=== PATIENT | male | born 1995 | race Caucasian/White ===

== ENCOUNTER 2020-02-04 14:17 | Emergency (ER) | payer SELFPAY ==
[2020-02-04 14:39] VITALS: BP 133/73; PULSE 84; RESP 16; TEMP 37.1; O2SAT 98; BMI 25.8
--- NOTE | 2020-02-04 14:45 | XR_ITS ---
EXAMINATION: XR fifth finger, LEFT CLINICAL INFORMATION: Trauma COMPARISON: None TECHNIQUE: 4 views of the left fifth finger. FINDINGS: There is a soft tissue avulsion injury involving the dorsal medial aspect of the left fifth distal phalanx. There is fracture of the tuft with distraction of the major fracture fragments by approximately 3 mm. There is some volar displacement and angulation of the distal fracture fragment. No radiopaque foreign body is appreciated. XR/XR finger LT min 2V IMPRESSION: Avulsion injury about the soft tissues with displaced fracture of the distal tuft of the fifth distal phalanx.
--- NOTE | 2020-02-04 15:26 | ED_ITS ---
HPI - Wound/Laceration General Chief Complaint: Wound/Laceration Stated Complaint: FINGER INJ Time Seen by Provider: 02/04/20 14:45 Source: patient Mode of arrival: ambulatory Limitations: language barrier History of Present Illness HPI narrative: 24 y/o male presenting with left 5th finger pain after he injured it while throwing metal into a dumpster. The metal got stuck on his finger and caused a deep laceration to the tip of the finger, deep under the nail bed. Pain is throbbing in nature. He has full function of his finger and denies numbness. No other injuries. Onset (ago): hour(s) (4) Extremity Location: left: hand (5th digit ) Place: home Patient tetanus UTD: No Context: accidental Associated symptoms: pain Treatments prior to arrival: bandage Related Data Previous Rx's Medication Instructions Recorded cephalexin [Keflex] 500 mg PO QID 10 Days #40 cap 02/04/20 hydrocodone-acetaminophen [Lithonia] 1 tab PO Q6H PRN #10 tab 02/04/20 ibuprofen 600 mg PO Q8H PRN #20 tab 02/04/20 Allergies Allergy/AdvReac Type Severity Reaction Status Date / Time No Known Allergies Allergy Unverified 02/04/20 14:45 Review of Systems Review of Systems: Constitutional: No Fever, No Chills Cardiovascular: No Chest Pain, No SOB Respiratory: No Cough, No Sputum Gastrointestinal: No Nausea, No Vomiting Musculoskeletal: + joint pain, No Myalgias Skin: + Skin Lesions, No rash Neuro: No Weakness, No Numbness Heme/Lymph: + Bruising PMFSH Past Medical History Attestation statement: The following information was validated with the patient. Social History Social History Advance Directives: No Advance Directives Information Provided: No Physical Exam Vital Signs: Vital Signs: Last Vital Signs Temp 98.8 F 02/04/20 14:39 Pulse 84 02/04/20 14:39 Resp 16 02/04/20 14:39 BP 133/73 02/04/20 14:39 Pulse Ox 98 02/04/20 14:39 Body Mass Index 25.8 Appearance: Alert. Oriented X3. No acute distress. HEENT: normal inspection CVS: Normal heart rate and rhythm. Pulses normal. Respiratory: No respiratory distress. Skin: Skin warm and dry. Normal skin color. Normal skin turgor. No rashes. Extremities: left 5th digit with deep laceration to the dorsal aspect just below nail bed, tendon function is intact, wound is irregular, subungual hematoma present, unable to assess cap refill. Neuro: Oriented X 3. No motor deficit. No sensory deficit. Course Course Course Narrative: 24 y/o male with finger trauma. Does not appear to have tendon involvement. XR showed avulsion injury with displaced fracture of the distal tuft of the 5th distal phalanx. Images of XR and wound were sent to [facility] from [facility]o - she reviewed the case with Hand Surgeon. Recommended extensive wound irrigation, loose wound margin approximation and antibiotics. Ortho will see early next week. Procedures Laceration Laceration 1: Site: hand Side (If applicable): left Size (cm): 2.5 Description: linear, irregular and contaminated Depth: simple, single layer Local Anesthetic: lidocaine 2% Amount of anesthesia used (mL): 5 Pre-repair: wound explored, irrigated extensively, deep structures intact and wound margins revised Skin layer closed with: nylon Size (cm): 4-0 and 5-0 Number of sutures: 5 Technique: simple, interrupted MDM - Wound/Laceration MDM Narrative Medical decision making narrative: case d/w ortho and hand surgeon aware. patient explained the risk of infection, abx and pain meds given here. wound approximated loosely. will d/c with keflex and pain meds. stable for d/c. tdap given Discharge Plan Discharge Clinical Impression: Laceration Finger fracture, left Qualifiers: Encounter type: initial encounter Finger: little finger Fracture type: open Phalanx: distal Fracture alignment: displaced Qualified Code(s): S62.637B - Displaced fracture of distal phalanx of left little finger, initial encounter for open fracture Patient Disposition: Home, Self-Care Instructions: Finger Fracture (ED), Finger Laceration (ED) Additional Instructions: Keep wound clean and dry. Do not get wet. Keep dressing and splint in place until you are evaluated by Orthopedics on Saturday. Take antibiotics to prevent infection. Take prescribed medications as needed for pain. If you have worsening pain, fevers, drainage of pus or loss of function come back to the ER for further evaluation. Prescriptions: New cephalexin [Keflex] 500 mg capsule 500 mg PO QID 10 Days Qty: 40 RF: 0 ibuprofen 600 mg tablet 600 mg PO Q8H PRN (Reason: pain) Qty: 20 RF: 0 hydrocodone-acetaminophen [Lithonia] 5-325 mg tablet 1 tab PO Q6H PRN (Reason: pain) Qty: 10 RF: 0 Stand Alone Forms: Work/School Release Print Language: Ethiopian
[2020-02-04] MEDS: Acetaminophen 325 MG TABLET 975 MG PO (15:35)
[2020-02-04] MEDS: oxyCODONE HCl Immed Release 5 MG TABLET PO (15:38)
[2020-02-04] MEDS: cephALEXin 500 MG CAPSULE PO (15:38)
[2020-02-04] MEDS: Lidocaine HCl 2 % MPF 5 ML VIAL INFILTRATI (15:39)
--- NOTE | 2020-02-04 15:40 | PC.NURSE ---
ADELITA LIMA SPOKE WITH [facility] RE: POC
== END 2020-02-04 17:05 | disposition home or self-care (01) ==
PROVIDERS: Emergency Provider Emergency Medicine
DX: S62.637B Displaced fracture of distal phalanx of left little finger, initial encounter for open fracture (principal); W26.8XXA Contact with other sharp object(s), not elsewhere classified, initial encounter; Y93.9 Activity, unspecified; Y92.9 Unspecified place or not applicable; Y99.9 Unspecified external cause status
CPT/HCPCS: 12001; 73140; 90715; 99283